=== PATIENT | male | born 1955 | race Caucasian/White ===

== ENCOUNTER → 2024-10-26 | Day surgery (SDC) | payer MEDICARE, OTHER ==
[~2024-10-26] MED LIST: Acetaminophen 325 MG Tab PO PRN; Acetaminophen/Codeine 300-30 MG Tab PO PRN; Cataract Ophth Solution EYELF ONE; Moxifloxacin 0.5% Ophth Soln 3 ML Bottle EYELF ONE; Ondansetron 4 MG/2 ML SDV IVPUSH PRN; Phenylephrine 10% Ophth Soln 5 ML Bot EYELF ONE; Povidone-Iodine 5% Sterile Ophth Soln 30 ML Bottle EYELF ONE; Proparacaine 0.5% Ophth Soln 15 ML Bottle EYELF ONE; Sodium Chloride 0.9% 10 ML Syringe FLUSH PRN; Timolol Maleate 0.5% Ophth Soln 5 ML Bottle EYELF ONE; Tropicamide 1% Ophth Soln 15 ML Bottle EYELF ONE
[2024-10-26] MEDS: Proparacaine 0.5% Ophth Soln 15 ML Bottle EYELF ONE ×2 (10:06→10:53)
[2024-10-26] MEDS: Moxifloxacin 0.5% Ophth Soln 3 ML Bottle EYELF ONE (10:08)
[2024-10-26] MEDS: Tropicamide 1% Ophth Soln 15 ML Bottle EYELF ONE (10:09)
[2024-10-26] MEDS: Phenylephrine 10% Ophth Soln 5 ML Bot EYELF ONE (10:10)
[2024-10-26] MEDS: Timolol Maleate 0.5% Ophth Soln 5 ML Bottle EYELF ONE (10:11)
[2024-10-26] MEDS: Povidone-Iodine 5% Sterile Ophth Soln 30 ML Bottle EYELF ONE ×2 (10:12→10:55)
[2024-10-26] MEDS: Cataract Ophth Solution EYELF ONE (10:12)
[2024-10-26] MEDS: Apraclonidine 0.5% Ophth Soln 5 ML Bot EYELF ONE (10:57)
[2024-10-26] MEDS: Diclofenac Sodium 0.1% Ophth Soln 5 ML Bottle EYELF ONE (10:58)
[2024-10-26] MEDS: Dexamethasone/Neomycin/Polymyxin B Ophth Oint 3.5 GM Tube EYELF ONE (10:59)
[2024-10-26] MEDS: Lidocaine 1% 30 ML SDV ONE (10:59)
[2024-10-26] MEDS: VANCOmycin 500 MG SDV EYELF ONE (11:00)
== END ==
LOC: DL.SDS 09:31
PROVIDERS: ATTEND Ophthalmology
DX: H25.812 Combined forms of age-related cataract, left eye (principal); I48.11 Longstanding persistent atrial fibrillation; E78.5 Hyperlipidemia, unspecified; I10 Essential (primary) hypertension; E66.9 Obesity, unspecified; Z88.0 Allergy status to penicillin; Z68.43 Body mass index [BMI] 50.0-59.9, adult
CPT/HCPCS: A9270-GY; J3370; J3490

== ENCOUNTER 2024-11-16 08:05 | Day surgery (SDC) | payer MEDICARE, OTHER ==
[2024-11-16] MEDS ORDERED: Dexamethasone 4 MG/ML SDV IV ONE (08:06)
[2024-11-16] MEDS ORDERED: Midazolam 1 MG/ML 2 ML SDV IV ONE (08:06)
[2024-11-16] MEDS ORDERED: Sodium Chloride 0.9% 10 ML Syringe IV ONE (08:06)
[2024-11-16] MEDS ORDERED: Acetaminophen/Codeine 300-30 MG Tab PO PRN (08:30)
[2024-11-16] MEDS ORDERED: Ondansetron 4 MG/2 ML SDV IVPUSH PRN (08:30)
[2024-11-16] MEDS ORDERED: Acetaminophen 325 MG Tab PO PRN (08:30)
[2024-11-16] MEDS: Sodium Chloride 0.9% 10 ML Syringe FLUSH PRN (08:36)
[2024-11-16] MEDS: Proparacaine 0.5% Ophth Soln 15 ML Bottle EYERT ONE ×2 (08:36→09:30)
[2024-11-16] MEDS: Moxifloxacin 0.5% Ophth Soln 3 ML Bottle EYERT ONE (08:37)
[2024-11-16] MEDS: Povidone-Iodine 5% Sterile Ophth Soln 30 ML Bottle EYERT ONE ×2 (08:37→09:30)
[2024-11-16] MEDS: Tropicamide 1% Ophth Soln 15 ML Bottle EYERT ONE (08:38)
[2024-11-16] MEDS: Cataract Ophth Solution EYERT ONE (08:39)
[2024-11-16] MEDS: Phenylephrine 10% Ophth Soln 5 ML Bot EYERT ONE (08:39)
[2024-11-16] MEDS: Timolol Maleate 0.5% Ophth Soln 5 ML Bottle EYERT ONE (08:39)
[2024-11-16] MEDS: Apraclonidine 0.5% Ophth Soln 5 ML Bot EYERT ONE (09:31)
[2024-11-16] MEDS: Dexamethasone/Neomycin/Polymyxin B Ophth Oint 3.5 GM Tube EYERT ONE (09:32)
[2024-11-16] MEDS: Diclofenac Sodium 0.1% Ophth Soln 5 ML Bottle EYERT ONE (09:32)
[2024-11-16] MEDS: Lidocaine 1% 30 ML SDV INJECT ONE (09:33)
[2024-11-16] MEDS: VANCOmycin 500 MG SDV EYERT ONE (09:34)
== END 2024-11-16 10:13 | disposition home or self-care (01) ==
LOC: DL.SDS 08:05
PROVIDERS: ATTEND Ophthalmology
DX: H25.811 Combined forms of age-related cataract, right eye (principal)
CPT/HCPCS: A9270-GY; J1100; J2003; J2250; J3370; J3490